=== PATIENT | male | born 1975 | race Caucasian/White ===

== ENCOUNTER 2016-07-29 17:36 | Emergency (ER) | payer OTHER | END 2016-07-30 00:05 | disposition left against medical advice (07) | LOC: ER1 17:36 | DX: Z53.21 Procedure and treatment not carried out due to patient leaving prior to being seen by health care provider (principal) ==

== ENCOUNTER → 2016-08-27 | Outpatient (CLI) | payer OTHER | LOC: KOH-I 08:47 | DX: G06.2 Extradural and subdural abscess, unspecified (principal) | CPT/HCPCS: 72157; A9577 ==

== ENCOUNTER → 2016-09-05 | Outpatient (CLI) | payer OTHER ==
[2016-09-05 13:55] LABS: HEMOGLOBIN 14.3 gm/dl (14.0-17.5); RED BLOOD COUNT 4.62 M/UL (4.20-5.50); WHITE BLOOD COUNT 9.9 K/UL (4.5-11.0)
[2016-09-05 14:20] LABS: BUN/CREATININE RATIO 16 (0-10)
== END ==
LOC: LAB 13:22
PROVIDERS: Family Medicine
DX: G06.1 Intraspinal abscess and granuloma (principal)
CPT/HCPCS: 36415; 72070; 80053; 85025; 86140; 87040

== ENCOUNTER → 2021-02-22 | Outpatient (CLI) | payer OTHER | LOC: LAB 14:21 | DX: Z02.83 Encounter for blood-alcohol and blood-drug test (principal) | CPT/HCPCS: 36415 ==

== ENCOUNTER → 2021-04-04 | Outpatient (CLI) | payer OTHER | LOC: RAD 10:35 | DX: S21.209A Unspecified open wound of unspecified back wall of thorax without penetration into thoracic cavity, initial encounter (principal) | CPT/HCPCS: 71046 ==

== ENCOUNTER → 2021-04-08 | Outpatient (CLI) | payer OTHER | LOC: WCC 07:58 | DX: S21.201D Unspecified open wound of right back wall of thorax without penetration into thoracic cavity, subsequent encounter (principal); F19.11 Other psychoactive substance abuse, in remission; I10 Essential (primary) hypertension; B18.2 Chronic viral hepatitis C; J45.909 Unspecified asthma, uncomplicated; Z87.39 Personal history of other diseases of the musculoskeletal system and connective tissue; Z87.311 Personal history of (healed) other pathological fracture; Z98.1 Arthrodesis status; Z72.0 Tobacco use; X58.XXXD Exposure to other specified factors, subsequent encounter ==

== ENCOUNTER → 2021-04-24 | Outpatient (CLI) | payer OTHER | LOC: WCC 10:20 | DX: T81.89XA Other complications of procedures, not elsewhere classified, initial encounter (principal); T81.30XA Disruption of wound, unspecified, initial encounter; F19.11 Other psychoactive substance abuse, in remission; I10 Essential (primary) hypertension; B18.2 Chronic viral hepatitis C; J45.909 Unspecified asthma, uncomplicated; Z87.39 Personal history of other diseases of the musculoskeletal system and connective tissue; Z98.1 Arthrodesis status; Z87.311 Personal history of (healed) other pathological fracture; Z72.0 Tobacco use; Y83.8 Other surgical procedures as the cause of abnormal reaction of the patient, or of later complication, without mention of misadventure at the time of the procedure; Y92.9 Unspecified place or not applicable ==

== ENCOUNTER → 2021-04-26 | Outpatient (CLI) | payer OTHER | LOC: MRI 14:28 → EMI 14:30 → MRI 14:30 | DX: S21.209A Unspecified open wound of unspecified back wall of thorax without penetration into thoracic cavity, initial encounter (principal); M47.814 Spondylosis without myelopathy or radiculopathy, thoracic region | CPT/HCPCS: 72146 ==

== ENCOUNTER → 2021-05-14 | Outpatient (CLI) | payer OTHER | END | disposition home or self-care (01) | LOC: WCC 07:07 | DX: S21.201A Unspecified open wound of right back wall of thorax without penetration into thoracic cavity, initial encounter (principal); T81.30XA Disruption of wound, unspecified, initial encounter; X58.XXXA Exposure to other specified factors, initial encounter; I10 Essential (primary) hypertension; B18.2 Chronic viral hepatitis C; F19.11 Other psychoactive substance abuse, in remission; F17.200 Nicotine dependence, unspecified, uncomplicated; Z98.1 Arthrodesis status; Z87.39 Personal history of other diseases of the musculoskeletal system and connective tissue ==

== ENCOUNTER → 2021-05-21 | Outpatient (CLI) | payer OTHER | END | disposition home or self-care (01) | LOC: WCC 07:18 | DX: S21.201A Unspecified open wound of right back wall of thorax without penetration into thoracic cavity, initial encounter (principal); T81.30XA Disruption of wound, unspecified, initial encounter; I10 Essential (primary) hypertension; B18.2 Chronic viral hepatitis C; F19.11 Other psychoactive substance abuse, in remission; F17.200 Nicotine dependence, unspecified, uncomplicated; Z87.39 Personal history of other diseases of the musculoskeletal system and connective tissue ==

== ENCOUNTER → 2021-05-28 | Outpatient (CLI) | payer OTHER | LOC: WCC 07:24 | DX: T81.31XA Disruption of external operation (surgical) wound, not elsewhere classified, initial encounter (principal); S31.000A Unspecified open wound of lower back and pelvis without penetration into retroperitoneum, initial encounter; X58.XXXA Exposure to other specified factors, initial encounter; Z87.39 Personal history of other diseases of the musculoskeletal system and connective tissue; F19.11 Other psychoactive substance abuse, in remission; Z98.1 Arthrodesis status; I10 Essential (primary) hypertension; B18.2 Chronic viral hepatitis C; Z72.0 Tobacco use ==

== ENCOUNTER → 2021-06-04 | Outpatient (CLI) | payer OTHER | LOC: WCC 07:18 | DX: S21.201D Unspecified open wound of right back wall of thorax without penetration into thoracic cavity, subsequent encounter (principal); I10 Essential (primary) hypertension; F19.11 Other psychoactive substance abuse, in remission; B18.2 Chronic viral hepatitis C; Z72.0 Tobacco use; Z98.1 Arthrodesis status; Z87.39 Personal history of other diseases of the musculoskeletal system and connective tissue | CPT/HCPCS: 87070; 87205 ==

== ENCOUNTER → 2021-06-11 | Outpatient (CLI) | payer OTHER | LOC: WCC 07:35 | DX: T81.31XD Disruption of external operation (surgical) wound, not elsewhere classified, subsequent encounter (principal); S21.201D Unspecified open wound of right back wall of thorax without penetration into thoracic cavity, subsequent encounter; F19.11 Other psychoactive substance abuse, in remission; I10 Essential (primary) hypertension; B18.2 Chronic viral hepatitis C; Y83.8 Other surgical procedures as the cause of abnormal reaction of the patient, or of later complication, without mention of misadventure at the time of the procedure; Z87.39 Personal history of other diseases of the musculoskeletal system and connective tissue; Z98.1 Arthrodesis status; Z72.0 Tobacco use ==

== ENCOUNTER → 2021-06-20 | Outpatient (CLI) | payer OTHER | LOC: WCC 07:31 | DX: T81.31XA Disruption of external operation (surgical) wound, not elsewhere classified, initial encounter (principal); S21.201A Unspecified open wound of right back wall of thorax without penetration into thoracic cavity, initial encounter; Z87.39 Personal history of other diseases of the musculoskeletal system and connective tissue; F19.11 Other psychoactive substance abuse, in remission; Z98.1 Arthrodesis status; I10 Essential (primary) hypertension; B18.2 Chronic viral hepatitis C ==

== ENCOUNTER → 2021-09-17 | Outpatient (CLI) | payer OTHER | LOC: RAD 14:02 | DX: Z98.890 Other specified postprocedural states (principal); M47.814 Spondylosis without myelopathy or radiculopathy, thoracic region | CPT/HCPCS: 72072 ==